=== PATIENT | female | born 1980 | race Caucasian/White ===

== ENCOUNTER 2023-04-09 18:38 | Emergency (ER) | payer SELFPAY ==
[2023-04-09 19:13] LABS: APPEARANCE,URINE CLOUDY (CLEAR); BILIRUBIN,URINE NEGATIVE (NEGATIVE); GLUCOSE,URINE NEGATIVE (NEGATIVE); KETONES,URINE NEGATIVE (NEGATIVE); NITRITE,URINE NEGATIVE (NEGATIVE); PROTEIN,URINE >=300 (NEGATIVE); UROBILINOGEN,URINE 0.2 mg/dL (0.2-1.0)
[2023-04-09 19:16] LABS: LEUKOCYTE ESTERASE,URINE SMALL (NEGATIVE); OCCULT BLOOD,URINE LARGE (NEGATIVE)
[2023-04-09 19:17] LABS: COLOR,URINE RED (YELLOW)
[2023-04-09 19:18] LABS: BACTERIA,URINE MODERATE /HPF (0-FEW/HPF); EPITHELIAL CELLS,URINE FEW /HPF (NOT SEEN); RBC,URINE >100 /HPF (0-5)
[2023-04-09] MEDS ORDERED: Take Home: Phenazopyridine 95 MG Tab, 4 Tab Pack PO ONE (19:49)
[2023-04-09] MEDS ORDERED: Take Home: Nitrofurantoin Monohydrate/Macrocrystalline 100 MG, 6 Cap Pack PO ONE (19:50)
== END 2023-04-09 20:20 | disposition home or self-care (01) ==
LOC: DL.ED 18:38
DX: N39.0 Urinary tract infection, site not specified (principal); Z88.2 Allergy status to sulfonamides
CPT/HCPCS: 81001; 87086; 87088; 87186; 99283; A9270-GY